=== PATIENT | female | born 1980 | race African-American/Black ===

== ENCOUNTER 2019-04-12 20:55 | Emergency (ER) | payer BC, OTHER ==
[2019-04-12] MEDS ORDERED: KETOROLAC TROMETHAMINE 60 MG/2 ML VIAL IM ONE (21:20)
[2019-04-12] MEDS ORDERED: KETOROLAC TROMETHAMINE 60 MG/2 ML VIAL ONE (21:21)
[2019-04-12 21:23] VITALS: BP 136/90; PULSE 85; TEMP 99; BMI 32.8
--- NOTE | 2019-04-13 03:57 | PDOC ---
Documentation entered by Reynaldo Sotelo SCRIBE, acting as scribe for Raeann Britt MD. Raeann Britt MD: This documentation has been prepared by the Deepak gan Daniel, SCRIBE, under my direction and personally reviewed by me in its entirety. I confirm that the documentation accurately reflects all work, treatment, procedures, and medical decision making performed by me. History of Present Illness - General Chief Complaint: Pain, Acute Stated Complaint: BACK PAIN History Source: Patient Exam Limitations: No Limitations - History of Present Illness Initial Comments: 04/12/19 21:24 The patient is a 38 year old female with a past medical history of 2 herniated discs (unsure of level) with sciatica here today for evaluation of back pain. The patient reports that she has had multiple episodes of sciatic back pain in the past and states that her current episode started this morning and describes it as localized to her entire left back, a shooting spasm pain, not alleviated with heat or rest, and worse with movement to the left and deep breaths. Patient states that her current symptoms are similar to her previous episodes of back pain and states that she follows with an orthopedist but has not seen him recently due to the pain not being as bad. She denies any strenuous activity leading up to her current episode. Patient denies headache, lightheadedness. Denies fever, chills. Denies chest pain, shortness of breath. Denies nausea, vomiting, diarrhea, abdominal pain. Allergies: NKA Social history: Denies tobacco, alcohol, and illicit drug use. Past History - Past Medical History Allergies/Adverse Reactions: Allergies Allergy/AdvReac Type Severity Reaction Status Date / Time No Known Allergies Allergy Verified 04/12/19 20:57 Home Medications: Ambulatory Orders Diclofenac Sodium 75 mg PO BID PRN #20 tablet. 04/12/19 Methocarbamol [Robaxin-750] 750 mg PO BID 04/12/19 Methocarbamol [Robaxin-750] 750 mg PO TID PRN #20 tablet 04/12/19 - Psycho Social/Smoking Cessation Hx Smoking History: Never smoked Hx Alcohol Use: No Drug/Substance Use Hx: No Review of Systems - Review of Systems Able to Perform ROS?: Yes Comments:: 04/12/19 21:24 GENERAL/CONSTITUTIONAL: No fever or chills. No weakness. HEAD, EYES, EARS, NOSE AND THROAT: No change in vision. No ear pain or discharge. No sore throat. CARDIOVASCULAR: No chest pain or shortness of breath. RESPIRATORY: No cough, wheezing, or hemoptysis. GASTROINTESTINAL: No nausea, vomiting, diarrhea or constipation. GENITOURINARY: No dysuria, frequency, or change in urination. MUSCULOSKELETAL: +left back pain. No joint or muscle swelling or pain. No neck pain. SKIN: No rash NEUROLOGIC: No headache, vertigo, loss of consciousness, or change in strength/ sensation. ENDOCRINE: No increased thirst. No abnormal weight change. HEMATOLOGIC/LYMPHATIC: No anemia, easy bleeding, or history of blood clots. ALLERGIC/IMMUNOLOGIC: No hives or skin allergy. *Physical Exam - Vital Signs Last Vital Signs Temp Pulse Resp BP Pulse Ox 99 F 85 18 136/90 100 04/12/19 21:06 04/12/19 21:06 04/12/19 21:06 04/12/19 21:06 04/12/19 21:06 - Physical Exam 04/12/19 21:25 GENERAL: Awake, alert, and fully oriented, in no acute distress HEAD: No signs of trauma EYES: PERRLA, EOMI, sclera anicteric, conjunctiva clear ENT: Auricles normal inspection, hearing grossly normal, nares patent, oropharynx clear without exudates. Moist mucosa NECK: Normal ROM, supple, no lymphadenopathy, JVD, or masses LUNGS: Breath sounds equal, clear to auscultation bilaterally. No wheezes, and no crackles HEART: Regular rate and rhythm, normal S1 and S2, no murmurs, rubs or gallops ABDOMEN: Soft, nontender, normoactive bowel sounds. No guarding, no rebound. No masses EXTREMITIES: Normal range of motion, no edema. No clubbing or cyanosis. No cords, erythema, or tenderness BACK: +mild tenderness to palpation of right paralumbar muscles. +moderate tenderness to palpation of midline mid to lower lumbar spine. +pain on straight leg elevation of left leg greater than 20 degrees. NEUROLOGICAL: Cranial nerves II through XII grossly intact. Normal speech, normal gait. No gross motor or sensory deficits. SKIN: Warm, Dry, normal turgor, no rashes or lesions noted. ED Treatment Course - Medications Given in the ED: ED Medications Discontinued Medications Generic Name Dose Route Start Last Admin Trade Name Izabella PRN Reason Stop Dose Admin Ketorolac Tromethamine 60 mg 04/12/19 21:20 04/12/19 21:24 Toradol Injection - IM 04/12/19 21:21 60 mg ONCE ONE Administration Medical Decision Making - Medical Decision Making As noted above, this 38-year-old woman with a history of chronic, intermittent lower back pain (relates history of 2 herniated disks, level unknown) presents with first flareup of her lower back pain in over a year. No known trauma or overuse. Patient has not taken any medication for the pain because the prescription medications that were given to her have . She has no evidence of complicated etiology of her back pain. Exam as above consistent with muscle spasm and lumbosacral strain Patient given Toradol, 60 mg IM. Patient had significant relief in her pain after Toradol IM. Prescription for Robaxin sent to her pharmacy, as well as a prescription for diclofenac 75 mg twice a day. The patient should plan on following up with her general medical doctor on , June 16 and return here if she has worsening of her pain Discharge - Discharge Information Problems reviewed: Yes Clinical Impression/Diagnosis: Lumbosacral strain Qualifiers: Encounter type: initial encounter Qualified Code(s): S39.012A - Strain of muscle, fascia and tendon of lower back, initial encounter Condition: Stable Disposition: HOME - Additional Discharge Information Prescriptions: Diclofenac Sodium 75 mg PO BID PRN #20 tablet.dr AN Reason: Back Pain Methocarbamol [Robaxin-750] 750 mg PO TID PRN #20 tablet PRN Reason: Muscle Spasms - Follow up/Referral - Patient Discharge Instructions Patient Printed Discharge Instructions: Low Back Pain Additional Instructions: Local warmth to areas of muscle spasm Diclofenac twice a day as needed for back pain (take with food) Robaxin 750 mg up to 3 times a day as needed for muscle spasm Avoid activities requiring your full attention while taking Robaxin No work tomorrow Follow-up with your sports medicine doctor within the next 3 to 4 days Return to ER if you have persistent severe pain or develop weakness/numbness of leg - Post Discharge Activity Work/Back to School Note: Back to Work
== END 2019-04-12 22:04 | disposition home or self-care (01) ==
LOC: FER 20:55
PROC: 3E0233Z Introduction of Anti-inflammatory into Muscle, Percutaneous Approach (ICD-10-PCS; principal; 2019-04-12)
DX: S39.012A Strain of muscle, fascia and tendon of lower back, initial encounter (principal); X58.XXXA Exposure to other specified factors, initial encounter; Y93.89 Activity, other specified; Y92.89 Other specified places as the place of occurrence of the external cause
CPT/HCPCS: 99281-25